=== PATIENT | male | born 1985 | race African-American/Black ===

== ENCOUNTER 2023-03-09 17:48 | Inpatient (IN) | payer OTHER ==
[2023-03-09 21:48] VITALS: BMI 26.5
[2023-03-09] MEDS ORDERED: LOPERAMIDE HCL 2 MG CAPSULE PO PRN (22:57)
[2023-03-09] MEDS ORDERED: MAG HYDROX/AL HYDROX/SIMETH 30 ML UNIT-DOSE CUP PO PRN (22:57)
[2023-03-09] MEDS ORDERED: BENZOCAINE/MENTHOL (CHLORASEPTIC ) LOZENGE MM PRN (22:57)
[2023-03-09] MEDS ORDERED: BENZONATATE 200 MG CAPSULE PO PRN (22:57)
[2023-03-09] MEDS ORDERED: guaiFENesin 600 MG TABLET.ER (FP) PO PRN (22:57)
[2023-03-09] MEDS ORDERED: MAGNESIUM HYDROX 2400MG/30ML ORAL SUSPENSION 30 ML CUP PO PRN (22:57)
[2023-03-09] MEDS ORDERED: P-EPHED 60MG/TRIPROLIDI 2.5MG TABLET PO PRN (22:57)
[2023-03-09] MEDS ORDERED: POLYETHYLENE GLYCOL (HEALTHYLAX) 3350 17 GM PACKET PO PRN (22:57)
[2023-03-09] MEDS ORDERED: COLLOIDAL OATMEAL 1 BAR EACH TP PRN (22:57)
[2023-03-10] MEDS: INSULIN SLIDING SCALE (NOVOLOG) 1 VIAL SQ SCH ×5 (07:35→21:12)
[2023-03-10] MEDS: MELATONIN 5 MG TABLETS PO SCH ×2 (07:36→21:11)
[2023-03-10] MEDS: PRENATAL VITAMINS W/ FOLIC ACID TABLET (FP) PO SCH (10:01)
[2023-03-10] MEDS: SULFAMETHOXAZOLE/TRIMETHOPRIM 800MG/160MG D.S. TABLET PO SCH ×2 (10:01→21:11)
[2023-03-10 11:45] LABS: HEMATOCRIT 35.5 % (35.4-49); HEMOGLOBIN 11.1 GM/dL (11.7-16.9); MCH 25.6 pg (25.7-33.7); MCHC 31.2 g/dl (32.0-35.9); MEAN CELL VOLUME 82.2 fl (80-96); MEAN PLT VOLUME 8.4 fl (7.5-11.1); PLATELET COUNT 271 10^3/uL (134-434); RBC 4.32 M/mm3 (4.00-5.60); RDW 20.4 % (11.9-15.9); WHITE BLOOD COUNT 7.6 K/mm3 (4.0-10.0)
[2023-03-10 12:00] LABS: CHLORIDE 96 mmol/L (98-107); POTASSIUM 4.8 mmol/L (3.5-5.1)
[2023-03-10] MEDS ORDERED: TUBERCULIN PPD 5 TU/0.1ML SYRINGE (IN PATIENT USE ONLY) ID ONE (12:00)
[2023-03-10 12:06] LABS: SGPT/ALT 32 U/L (13-61)
[2023-03-10 12:08] LABS: CALCIUM 9.3 mg/dL (8.5-10.1); TOT PROT 7.4 g/dl (6.4-8.2)
[2023-03-10 12:09] LABS: ALBUMIN 3.6 g/dl (3.4-5.0); BLOOD UREA NITROGEN 17.7 mg/dL (7-18); CO2 18 mmol/L (21-32)
[2023-03-10 12:10] LABS: ALK PHOS 112 U/L (45-117); BILIRUBIN,TOTAL 0.4 mg/dL (0.2-1); CREATININE 1.5 mg/dL (0.55-1.3)
[2023-03-10 12:11] LABS: URINE APPEARANCE Clear; URINE BILIRUBIN Negative (NEGATIVE); URINE COLOR Yellow; URINE GLUCOSE (UA) 2+ (NEGATIVE); URINE KETONE 4+ (NEGATIVE); URINE LEUK ESTERASE Negative (NEGATIVE); URINE NITRITE Negative (NEGATIVE); URINE PROTEIN Negative (NEGATIVE); URINE UROBILINOGEN 0.2 mg/dL (0.2-1.0)
[2023-03-10 12:12] LABS: SGOT/AST 14 U/L (15-37)
[2023-03-10 12:13] LABS: ANION GAP 19 MMOL/L (8-16); GLUCOSE,RANDOM 430 mg/dL (74-106); SODIUM 133 mmol/L (136-145)
[2023-03-10] MEDS ORDERED: TUBERCULIN PPD 5 TU/0.1ML VIAL ID ONE (12:15)
[2023-03-10] MEDS ORDERED: ONDANSETRON *ODT* 4 MG TABLET SL PRN (15:23)
[2023-03-10] MEDS: FERROUS SO4 325 MG TABLET (FP) PO SCH (15:47)
[2023-03-10] MEDS: LIPASE/PROTEASE/AMYLASE 6,000 UNIT CAPSULE PO SCH (16:34)
[2023-03-10] MEDS: THIAMINE HCL 100 MG TABLET (FP) PO SCH (21:11)
[2023-03-10] MEDS: GABAPENTIN 400 MG CAPSULE PO SCH (21:11)
[2023-03-10] MEDS: INSULIN (LEVEMIR) 100 UNITS/ML UNITS SQ SCH (21:12)
[2023-03-10] MEDS: ARIPiprazole 5 MG TABLET PO SCH (21:15)
[2023-03-11] MEDS: GABAPENTIN 400 MG CAPSULE PO SCH ×3 (06:02→21:03)
[2023-03-11] MEDS: FERROUS SO4 325 MG TABLET (FP) PO SCH (07:05)
[2023-03-11] MEDS: INSULIN SLIDING SCALE (NOVOLOG) 1 VIAL SQ SCH ×4 (07:05→21:04)
[2023-03-11] MEDS: LIPASE/PROTEASE/AMYLASE 6,000 UNIT CAPSULE PO SCH ×2 (07:05→16:35)
[2023-03-11] MEDS: PRENATAL VITAMINS W/ FOLIC ACID TABLET (FP) PO SCH (09:55)
[2023-03-11] MEDS: SULFAMETHOXAZOLE/TRIMETHOPRIM 800MG/160MG D.S. TABLET PO SCH ×2 (09:55→21:03)
[2023-03-11] MEDS: INSULIN (LEVEMIR) 100 UNITS/ML UNITS SQ SCH ×2 (09:59→21:03)
[2023-03-11] MEDS: IBUPROFEN 600 MG TABLET (FP) PO PRN (11:04)
[2023-03-11] MEDS: THIAMINE HCL 100 MG TABLET (FP) PO SCH (21:02)
[2023-03-11] MEDS: MELATONIN 5 MG TABLETS PO SCH (21:02)
[2023-03-11] MEDS: ARIPiprazole 5 MG TABLET PO SCH (21:04)
[2023-03-12] MEDS: GABAPENTIN 400 MG CAPSULE PO SCH ×3 (06:36→21:22)
[2023-03-12] MEDS: INSULIN SLIDING SCALE (NOVOLOG) 1 VIAL SQ SCH ×4 (06:49→21:22)
[2023-03-12] MEDS: FERROUS SO4 325 MG TABLET (FP) PO SCH (07:03)
[2023-03-12] MEDS: LIPASE/PROTEASE/AMYLASE 6,000 UNIT CAPSULE PO SCH ×2 (07:04→17:24)
[2023-03-12] MEDS: PRENATAL VITAMINS W/ FOLIC ACID TABLET (FP) PO SCH (09:59)
[2023-03-12] MEDS: SULFAMETHOXAZOLE/TRIMETHOPRIM 800MG/160MG D.S. TABLET PO SCH ×2 (09:59→21:21)
[2023-03-12] MEDS: INSULIN (LEVEMIR) 100 UNITS/ML UNITS SQ SCH ×2 (09:59→21:23)
[2023-03-12] MEDS: IBUPROFEN 600 MG TABLET (FP) PO PRN (14:04)
[2023-03-12] MEDS: MELATONIN 5 MG TABLETS PO SCH (21:21)
[2023-03-12] MEDS: THIAMINE HCL 100 MG TABLET (FP) PO SCH (21:21)
[2023-03-12] MEDS: ARIPiprazole 5 MG TABLET PO SCH (21:21)
[2023-03-13] MEDS: GABAPENTIN 400 MG CAPSULE PO SCH ×3 (06:12→21:04)
[2023-03-13] MEDS: INSULIN SLIDING SCALE (NOVOLOG) 1 VIAL SQ SCH ×4 (06:20→21:06)
[2023-03-13] MEDS: LIPASE/PROTEASE/AMYLASE 6,000 UNIT CAPSULE PO SCH ×2 (07:03→16:29)
[2023-03-13] MEDS: FERROUS SO4 325 MG TABLET (FP) PO SCH (07:04)
[2023-03-13] MEDS: SULFAMETHOXAZOLE/TRIMETHOPRIM 800MG/160MG D.S. TABLET PO SCH ×2 (09:33→21:03)
[2023-03-13] MEDS: PRENATAL VITAMINS W/ FOLIC ACID TABLET (FP) PO SCH (09:33)
[2023-03-13] MEDS: INSULIN (LEVEMIR) 100 UNITS/ML UNITS SQ SCH ×2 (09:35→21:08)
[2023-03-13] MEDS: IBUPROFEN 600 MG TABLET (FP) PO PRN ×2 (10:34→21:07)
[2023-03-13] MEDS: THIAMINE HCL 100 MG TABLET (FP) PO SCH (21:03)
[2023-03-13] MEDS: MELATONIN 5 MG TABLETS PO SCH (21:03)
[2023-03-13] MEDS: ARIPiprazole 5 MG TABLET PO SCH (21:04)
[2023-03-14] MEDS: GABAPENTIN 400 MG CAPSULE PO SCH ×3 (06:02→21:08)
[2023-03-14] MEDS: LIPASE/PROTEASE/AMYLASE 6,000 UNIT CAPSULE PO SCH ×2 (07:09→16:30)
[2023-03-14] MEDS: IBUPROFEN 400 MG TABLET (FP) PO PRN (07:09)
[2023-03-14] MEDS: INSULIN SLIDING SCALE (NOVOLOG) 1 VIAL SQ SCH ×4 (07:10→21:12)
[2023-03-14] MEDS: FERROUS SO4 325 MG TABLET (FP) PO SCH (07:17)
[2023-03-14] MEDS: SULFAMETHOXAZOLE/TRIMETHOPRIM 800MG/160MG D.S. TABLET PO SCH ×2 (09:23→21:09)
[2023-03-14] MEDS: PRENATAL VITAMINS W/ FOLIC ACID TABLET (FP) PO SCH (09:23)
[2023-03-14] MEDS: INSULIN (LEVEMIR) 100 UNITS/ML UNITS SQ SCH ×2 (10:55→21:11)
[2023-03-14] MEDS: ACETAMINOPHEN 325 MG TABLET (FP) PO PRN (16:25)
[2023-03-14] MEDS: THIAMINE HCL 100 MG TABLET (FP) PO SCH (21:08)
[2023-03-14] MEDS: MELATONIN 5 MG TABLETS PO SCH (21:08)
[2023-03-14] MEDS: IBUPROFEN 600 MG TABLET (FP) PO PRN (21:10)
[2023-03-14] MEDS: ARIPiprazole 5 MG TABLET PO SCH (21:24)
[2023-03-15] MEDS: GABAPENTIN 400 MG CAPSULE PO SCH ×3 (06:00→21:10)
[2023-03-15] MEDS: INSULIN SLIDING SCALE (NOVOLOG) 1 VIAL SQ SCH ×6 (06:04→21:14)
[2023-03-15] MEDS: IBUPROFEN 600 MG TABLET (FP) PO PRN ×2 (06:10→15:10)
[2023-03-15] MEDS: LIPASE/PROTEASE/AMYLASE 6,000 UNIT CAPSULE PO SCH ×2 (07:05→17:19)
[2023-03-15] MEDS: FERROUS SO4 325 MG TABLET (FP) PO SCH (07:05)
[2023-03-15] MEDS: SULFAMETHOXAZOLE/TRIMETHOPRIM 800MG/160MG D.S. TABLET PO SCH ×2 (09:21→21:11)
[2023-03-15] MEDS: PRENATAL VITAMINS W/ FOLIC ACID TABLET (FP) PO SCH (09:21)
[2023-03-15] MEDS: INSULIN (LEVEMIR) 100 UNITS/ML UNITS SQ SCH ×2 (10:32→21:14)
[2023-03-15] MEDS: ACETAMINOPHEN 325 MG TABLET (FP) PO PRN (17:17)
[2023-03-15] MEDS: ARIPiprazole 5 MG TABLET PO SCH (21:11)
[2023-03-15] MEDS: MELATONIN 5 MG TABLETS PO SCH (21:14)
[2023-03-15] MEDS: THIAMINE HCL 100 MG TABLET (FP) PO SCH (21:14)
[2023-03-16] MEDS: GABAPENTIN 400 MG CAPSULE PO SCH ×3 (06:18→21:01)
[2023-03-16] MEDS: IBUPROFEN 400 MG TABLET (FP) PO PRN (06:18)
[2023-03-16] MEDS: INSULIN SLIDING SCALE (NOVOLOG) 1 VIAL SQ SCH ×5 (06:19→21:02)
[2023-03-16] MEDS: FERROUS SO4 325 MG TABLET (FP) PO SCH (07:09)
[2023-03-16] MEDS: LIPASE/PROTEASE/AMYLASE 6,000 UNIT CAPSULE PO SCH ×2 (07:10→16:35)
[2023-03-16] MEDS: SULFAMETHOXAZOLE/TRIMETHOPRIM 800MG/160MG D.S. TABLET PO SCH ×2 (09:40→21:01)
[2023-03-16] MEDS: PRENATAL VITAMINS W/ FOLIC ACID TABLET (FP) PO SCH (09:40)
[2023-03-16] MEDS: IBUPROFEN 600 MG TABLET (FP) PO PRN ×3 (10:50→21:02)
[2023-03-16] MEDS: INSULIN (LEVEMIR) 100 UNITS/ML UNITS SQ SCH ×2 (10:57→21:02)
[2023-03-16] MEDS: INSULIN (NOVOLOG) ASPART 100 UNITS/ML 10ML VIAL SQ SCH ×2 (11:56→16:15)
[2023-03-16] MEDS ORDERED: INSULIN SLIDING SCALE (NOVOLOG) 1 VIAL SQ ONE (11:59)
[2023-03-16] MEDS: THIAMINE HCL 100 MG TABLET (FP) PO SCH (21:01)
[2023-03-16] MEDS: MELATONIN 5 MG TABLETS PO SCH (21:01)
[2023-03-16] MEDS: ARIPiprazole 5 MG TABLET PO SCH (21:01)
[2023-03-17] MEDS: GABAPENTIN 400 MG CAPSULE PO SCH ×3 (06:09→21:16)
[2023-03-17] MEDS: INSULIN SLIDING SCALE (NOVOLOG) 1 VIAL SQ SCH ×4 (06:10→21:18)
[2023-03-17] MEDS: LIPASE/PROTEASE/AMYLASE 6,000 UNIT CAPSULE PO SCH ×2 (07:09→16:32)
[2023-03-17] MEDS: FERROUS SO4 325 MG TABLET (FP) PO SCH (07:09)
[2023-03-17] MEDS: INSULIN (NOVOLOG) ASPART 100 UNITS/ML 10ML VIAL SQ SCH ×3 (07:10→16:25)
[2023-03-17] MEDS: INSULIN (LEVEMIR) 100 UNITS/ML UNITS SQ SCH ×2 (09:20→21:18)
[2023-03-17] MEDS: PRENATAL VITAMINS W/ FOLIC ACID TABLET (FP) PO SCH (09:21)
[2023-03-17] MEDS: IBUPROFEN 600 MG TABLET (FP) PO PRN ×2 (09:37→16:24)
[2023-03-17] MEDS: ARIPiprazole 5 MG TABLET PO SCH (21:16)
[2023-03-17] MEDS: THIAMINE HCL 100 MG TABLET (FP) PO SCH (21:16)
[2023-03-17] MEDS: MELATONIN 5 MG TABLETS PO SCH (21:16)
[2023-03-18] MEDS: GABAPENTIN 400 MG CAPSULE PO SCH ×3 (06:08→21:16)
[2023-03-18] MEDS: ACETAMINOPHEN 325 MG TABLET (FP) PO PRN ×2 (06:19→19:08)
[2023-03-18] MEDS: FERROUS SO4 325 MG TABLET (FP) PO SCH (07:04)
[2023-03-18] MEDS: LIPASE/PROTEASE/AMYLASE 6,000 UNIT CAPSULE PO SCH ×2 (07:04→16:39)
[2023-03-18] MEDS: INSULIN (NOVOLOG) ASPART 100 UNITS/ML 10ML VIAL SQ SCH ×3 (07:25→16:27)
[2023-03-18] MEDS: INSULIN SLIDING SCALE (NOVOLOG) 1 VIAL SQ SCH ×4 (07:27→21:18)
[2023-03-18] MEDS: PRENATAL VITAMINS W/ FOLIC ACID TABLET (FP) PO SCH (10:16)
[2023-03-18] MEDS: INSULIN (LEVEMIR) 100 UNITS/ML UNITS SQ SCH ×2 (10:23→21:18)
[2023-03-18] MEDS ORDERED: INSULIN SLIDING SCALE (NOVOLOG) 1 VIAL SQ ONE ×2 (11:36→12:05)
[2023-03-18] MEDS: IBUPROFEN 600 MG TABLET (FP) PO PRN (16:40)
[2023-03-18] MEDS: MELATONIN 5 MG TABLETS PO SCH (21:16)
[2023-03-18] MEDS: ARIPiprazole 5 MG TABLET PO SCH (21:16)
[2023-03-18] MEDS: THIAMINE HCL 100 MG TABLET (FP) PO SCH (21:16)
[2023-03-19] MEDS: ACETAMINOPHEN 325 MG TABLET (FP) PO PRN ×2 (02:44→10:01)
[2023-03-19] MEDS: GABAPENTIN 400 MG CAPSULE PO SCH ×3 (06:18→21:21)
[2023-03-19] MEDS: INSULIN SLIDING SCALE (NOVOLOG) 1 VIAL SQ SCH ×4 (06:19→21:22)
[2023-03-19] MEDS: INSULIN (NOVOLOG) ASPART 100 UNITS/ML 10ML VIAL SQ SCH ×3 (06:19→16:22)
[2023-03-19] MEDS: FERROUS SO4 325 MG TABLET (FP) PO SCH (07:12)
[2023-03-19] MEDS: LIPASE/PROTEASE/AMYLASE 6,000 UNIT CAPSULE PO SCH ×2 (07:12→16:30)
[2023-03-19] MEDS: PRENATAL VITAMINS W/ FOLIC ACID TABLET (FP) PO SCH (10:00)
[2023-03-19] MEDS: INSULIN (LEVEMIR) 100 UNITS/ML UNITS SQ SCH ×2 (10:37→21:22)
[2023-03-19] MEDS: IBUPROFEN 600 MG TABLET (FP) PO PRN (17:56)
[2023-03-19] MEDS: ARIPiprazole 5 MG TABLET PO SCH (21:21)
[2023-03-19] MEDS: MELATONIN 5 MG TABLETS PO SCH (21:21)
[2023-03-19] MEDS: THIAMINE HCL 100 MG TABLET (FP) PO SCH (21:21)
[2023-03-20] MEDS: GABAPENTIN 400 MG CAPSULE PO SCH ×3 (06:35→21:01)
[2023-03-20] MEDS: INSULIN SLIDING SCALE (NOVOLOG) 1 VIAL SQ SCH ×4 (06:37→21:02)
[2023-03-20] MEDS: INSULIN (NOVOLOG) ASPART 100 UNITS/ML 10ML VIAL SQ SCH ×3 (06:37→16:45)
[2023-03-20] MEDS: FERROUS SO4 325 MG TABLET (FP) PO SCH (07:04)
[2023-03-20] MEDS: LIPASE/PROTEASE/AMYLASE 6,000 UNIT CAPSULE PO SCH ×2 (07:04→18:22)
[2023-03-20] MEDS: PRENATAL VITAMINS W/ FOLIC ACID TABLET (FP) PO SCH (09:57)
[2023-03-20] MEDS: INSULIN (LEVEMIR) 100 UNITS/ML UNITS SQ SCH ×2 (09:58→21:01)
[2023-03-20] MEDS: ACETAMINOPHEN 325 MG TABLET (FP) PO PRN ×2 (10:02→16:50)
[2023-03-20] MEDS ORDERED: INSULIN SLIDING SCALE (NOVOLOG) 1 VIAL SQ ONE (11:12)
[2023-03-20] MEDS: IBUPROFEN 600 MG TABLET (FP) PO PRN (13:44)
[2023-03-20] MEDS: hydrOXYzine PAMOATE 25 MG CAPSULE (FP) PO PRN (13:45)
[2023-03-20] MEDS: IBUPROFEN 400 MG TABLET (FP) PO PRN (16:51)
[2023-03-20] MEDS: THIAMINE HCL 100 MG TABLET (FP) PO SCH (21:01)
[2023-03-20] MEDS: MELATONIN 5 MG TABLETS PO SCH (21:01)
[2023-03-20] MEDS: ARIPiprazole 5 MG TABLET PO SCH (21:02)
[2023-03-21] MEDS: INSULIN SLIDING SCALE (NOVOLOG) 1 VIAL SQ SCH ×4 (06:01→21:27)
[2023-03-21] MEDS: GABAPENTIN 400 MG CAPSULE PO SCH ×3 (06:01→21:26)
[2023-03-21] MEDS: IBUPROFEN 600 MG TABLET (FP) PO PRN ×2 (06:02→11:53)
[2023-03-21] MEDS: hydrOXYzine PAMOATE 25 MG CAPSULE (FP) PO PRN (06:03)
[2023-03-21] MEDS: INSULIN (NOVOLOG) ASPART 100 UNITS/ML 10ML VIAL SQ SCH ×3 (06:05→16:59)
[2023-03-21] MEDS: FERROUS SO4 325 MG TABLET (FP) PO SCH (07:13)
[2023-03-21] MEDS: LIPASE/PROTEASE/AMYLASE 6,000 UNIT CAPSULE PO SCH ×2 (07:13→17:01)
[2023-03-21] MEDS: PRENATAL VITAMINS W/ FOLIC ACID TABLET (FP) PO SCH (10:36)
[2023-03-21] MEDS: INSULIN (LEVEMIR) 100 UNITS/ML UNITS SQ SCH ×2 (10:41→21:27)
[2023-03-21] MEDS: ACETAMINOPHEN 325 MG TABLET (FP) PO PRN (16:59)
[2023-03-21] MEDS: ARIPiprazole 5 MG TABLET PO SCH (21:26)
[2023-03-21] MEDS: THIAMINE HCL 100 MG TABLET (FP) PO SCH (21:26)
[2023-03-21] MEDS: MELATONIN 5 MG TABLETS PO SCH (21:26)
[2023-03-22] MEDS: INSULIN (NOVOLOG) ASPART 100 UNITS/ML 10ML VIAL SQ SCH ×3 (06:09→16:39)
[2023-03-22] MEDS: GABAPENTIN 400 MG CAPSULE PO SCH (06:09)
[2023-03-22] MEDS: INSULIN SLIDING SCALE (NOVOLOG) 1 VIAL SQ SCH ×4 (06:10→21:18)
[2023-03-22] MEDS: IBUPROFEN 400 MG TABLET (FP) PO PRN (06:10)
[2023-03-22] MEDS: LIPASE/PROTEASE/AMYLASE 6,000 UNIT CAPSULE PO SCH ×2 (07:03→16:38)
[2023-03-22] MEDS: FERROUS SO4 325 MG TABLET (FP) PO SCH (07:03)
[2023-03-22] MEDS: PRENATAL VITAMINS W/ FOLIC ACID TABLET (FP) PO SCH (10:06)
[2023-03-22] MEDS: INSULIN (LEVEMIR) 100 UNITS/ML UNITS SQ SCH ×2 (10:58→21:18)
[2023-03-22] MEDS: hydrOXYzine PAMOATE 25 MG CAPSULE (FP) PO PRN (12:43)
[2023-03-22] MEDS: IBUPROFEN 600 MG TABLET (FP) PO PRN ×2 (12:43→18:40)
[2023-03-22] MEDS: GABAPENTIN 300 MG CAPSULE PO SCH ×2 (13:05→21:16)
[2023-03-22] MEDS: ACYCLOVIR 400 MG TABLET PO SCH ×2 (13:05→21:16)
[2023-03-22] MEDS: MELATONIN 5 MG TABLETS PO SCH (21:16)
[2023-03-22] MEDS: THIAMINE HCL 100 MG TABLET (FP) PO SCH (21:16)
[2023-03-22] MEDS: ARIPiprazole 5 MG TABLET PO SCH (21:16)
[2023-03-23] MEDS: GABAPENTIN 300 MG CAPSULE PO SCH ×3 (06:15→21:10)
[2023-03-23] MEDS: ACYCLOVIR 400 MG TABLET PO SCH ×3 (06:15→21:10)
[2023-03-23] MEDS: INSULIN (NOVOLOG) ASPART 100 UNITS/ML 10ML VIAL SQ SCH ×3 (06:16→16:26)
[2023-03-23] MEDS: INSULIN SLIDING SCALE (NOVOLOG) 1 VIAL SQ SCH ×5 (06:16→21:12)
[2023-03-23] MEDS: ACETAMINOPHEN 325 MG TABLET (FP) PO PRN (06:45)
[2023-03-23] MEDS: LIPASE/PROTEASE/AMYLASE 6,000 UNIT CAPSULE PO SCH ×2 (07:07→17:14)
[2023-03-23] MEDS: FERROUS SO4 325 MG TABLET (FP) PO SCH (07:07)
[2023-03-23] MEDS: PRENATAL VITAMINS W/ FOLIC ACID TABLET (FP) PO SCH (09:58)
[2023-03-23 10:47] VITALS: RESP 18
[2023-03-23] MEDS: INSULIN (LEVEMIR) 100 UNITS/ML UNITS SQ SCH ×2 (10:59→21:12)
[2023-03-23] MEDS: IBUPROFEN 600 MG TABLET (FP) PO PRN ×2 (16:25→20:25)
[2023-03-23] MEDS: THIAMINE HCL 100 MG TABLET (FP) PO SCH (21:10)
[2023-03-23] MEDS: MELATONIN 5 MG TABLETS PO SCH (21:10)
[2023-03-23] MEDS: ARIPiprazole 5 MG TABLET PO SCH (21:10)
[2023-03-24] MEDS: IBUPROFEN 400 MG TABLET (FP) PO PRN (02:39)
[2023-03-24] MEDS: ACYCLOVIR 400 MG TABLET PO SCH (06:05)
[2023-03-24] MEDS: GABAPENTIN 300 MG CAPSULE PO SCH (06:05)
[2023-03-24] MEDS: INSULIN SLIDING SCALE (NOVOLOG) 1 VIAL SQ SCH (06:06)
[2023-03-24] MEDS: INSULIN (NOVOLOG) ASPART 100 UNITS/ML 10ML VIAL SQ SCH (06:09)
[2023-03-24] MEDS: ACETAMINOPHEN 325 MG TABLET (FP) PO PRN (06:53)
[2023-03-24] MEDS: FERROUS SO4 325 MG TABLET (FP) PO SCH (07:02)
[2023-03-24] MEDS: LIPASE/PROTEASE/AMYLASE 6,000 UNIT CAPSULE PO SCH (07:02)
[2023-03-24 07:17] VITALS: TEMP 97.9
[2023-03-24] MEDS: INSULIN (LEVEMIR) 100 UNITS/ML UNITS SQ SCH (09:18)
[2023-03-24] MEDS: PRENATAL VITAMINS W/ FOLIC ACID TABLET (FP) PO SCH (09:18)
[2023-03-24] MEDS: IBUPROFEN 600 MG TABLET (FP) PO PRN (09:19)
[2023-03-24 09:36] VITALS: BP 137/86; PULSE 106
== END 2023-03-24 09:35 | disposition home or self-care (01) | DRG 772 ==
LOC: YASAS 17:48 → Y3W 03-10 05:50
PROVIDERS: ADMIT Allergy & Immunology; ATTEND Psychiatry & Neurology Pain Medicine
PROC: HZ42ZZZ Group Counseling for Substance Abuse Treatment, Cognitive-Behavioral (ICD-10-PCS; principal; 2023-03-10)
DX: F14.20 Cocaine dependence, uncomplicated (principal); F10.20 Alcohol dependence, uncomplicated; F17.210 Nicotine dependence, cigarettes, uncomplicated; F25.9 Schizoaffective disorder, unspecified; I10 Essential (primary) hypertension; E10.65 Type 1 diabetes mellitus with hyperglycemia; Z79.4 Long term (current) use of insulin; N50.819 Testicular pain, unspecified; N48.1 Balanitis; R26.89 Other abnormalities of gait and mobility; Z88.0 Allergy status to penicillin; Z88.1 Allergy status to other antibiotic agents; Z87.09 Personal history of other diseases of the respiratory system; Z87.19 Personal history of other diseases of the digestive system
CPT/HCPCS: 36415; 80053; 81003; 82962; 85027; 86780; 87635